=== PATIENT | female | born 1965 | race Caucasian/White ===

== ENCOUNTER 2018-12-18 17:00 | Emergency (ER) | payer BC ==
--- OUTSIDE RECORDS SUMMARY | 2018-12-18 17:05 | XMS REPORT | Continuity of Care Document ---
:1965 External Reference #:[id number] Author Name MIGUEL Mancini Address [address] [place] [address] Care Team Providers Name Role Phone Patience Bell M.D. Care Team Information Hand Driller Unavailable Patience Bell M.D. Primary Care Physician Unavailable Payers Date Identification Numbers Payment Provider Subscriber Effective: Policy Number: [id number] BC/BS Of JESSICA Kelsey 2016 PayID: [id number] [address] [address] [place] [address] Advance Directives Description No Information Available Problems Date Description Provider Status Onset: 12/23/2014 Contact dermatitis Patience Bell M.D. Active Onset: 12/23/2014 Intrinsic asthma without status Patience Bell M.D. 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 No Active 04/19/ Hx Unknown Medications 2016 - 2017 No Active 12/13/ Hx Unknown Medications 2017 - 2016 Azithromycin 12/13/ Hx Tablets 250mg 6tabs take 2 J20.9 Makayla 2017 - tablets by Narendra, 04/19/ mouth SOL[employer] IN[employer] MEMBER 2017 today then take 1 tablet daily for next 4 days No Active 10/11/ Hx Unknown Medications 2015 - 2015 Elidel 10/11/ Hx Cream 1% 30gm apply R21 Cindi 2016 - thinly to [facility], 11/23/ affected Afnp-C 2017 areas on face below eye and around mouth bid No Active 04/22/ Hx Unknown Medications 2015 - 2015 Amoxicillin/Cl 04/22/ Hx Tablets 500-125mg 20tabs 1 by mouth J01.90 Makayla avulanate 2016 - twice a Narendra, Potassium 10/10/ day x 10 [employer] IN[employer] MEMBER 2016 days Clotrimazole/B 12/19/ Hx Cream 1-0.05% 90gm apply to L30.9 Maral etamethasone 2016 - affected [facility], Dipropionate 04/22/ areas , [employer] MEMBER 2016 once a day No Active 06/30/ Hx Unknown Medications 2014 - 2015 No Active 12/23/ Hx Unknown Medications 2014 - 2014 Mometasone 12/23/ Hx Ointment 0.1% 1units 1 apply to 692.9 Patience Furoate 2015 - affected [place], 06/30/ area twice M.D. 2014 a day for up to 7 days Advair Diskus / Hx Aerosol 250-50mcg/ 1 puff Unknown 0000 - Dose twice a day 2014 Immunizations CPT Code Status Date Vaccine Lot # [id number] Given 11/28/2017 Tdap Tetanus, W Pertussis [id number] Vital Signs Date Vital Result Comment 12/15/2018 3:14pm BP Systolic 128 mmHg BP Diastolic 88 mmHg Heart Rate 60 /min Body Temperature 98.1 F Respiratory Rate 17 /min Height 60 inches 5'0" Weight 149.25 lb BMI (Body Mass Index) 29.1 kg/m2 12/31/2017 10:53am BP Systolic 118 mmHg BP Diastolic 78 mmHg Heart Rate 72 /min Body Temperature 97.1 F Respiratory Rate 16 /min Height 60 inches 5'0" 11/28/2017 10:05am BP Systolic 160 mmHg BP Diastolic 100 mmHg Heart Rate 68 /min Body Temperature 97.9 F Height 60 inches 5'0" Weight 148.38 lb BMI (Body Mass Index) 29.0 kg/m2 04/19/2017 4:32pm BP Systolic 142 mmHg BP Diastolic 72 mmHg Heart Rate 72 /min Body Temperature 98.2 F Respiratory Rate 16 /min Height 60 inches 5'0" Weight 142.25 lb BMI (Body Mass Index) 27.8 kg/m2 12/13/2016 3:08pm BP Systolic 110 mmHg BP Diastolic 70 mmHg Heart Rate 68 /min Body Temperature 98.0 F Respiratory Rate 18 /min Height 60 inches 5'0" Weight 143.00 lb BMI (Body Mass Index) 27.9 kg/m2 11/23/2016 2:51pm BP Systolic 124 mmHg BP Diastolic 80 mmHg Heart Rate 68 /min Body Temperature 98.0 F Respiratory Rate 16 /min Height 60 inches 5'0" Weight 146.00 lb BMI (Body Mass Index) 28.5 kg/m2 10/11/2016 2:49pm BP Systolic 112 mmHg BP Diastolic 84 mmHg Heart Rate 72 /min Body Temperature 97.9 F Height 60 inches 5'0" Weight 143.12 lb BMI (Body Mass Index) 27.9 kg/m2 04/22/2016 11:47am BP Systolic 118 mmHg BP Diastolic 70 mmHg Heart Rate 68 /min Body Temperature 97.9 F Respiratory Rate 18 /min Height 60 inches 5'0" Weight 140.00 lb BMI (Body Mass Index) 27.3 kg/m2 12/19/2015 11:22am BP Systolic 126 mmHg BP Diastolic 80 mmHg Heart Rate 80 /min Body Temperature 97.9 F Respiratory Rate 16 /min Height 60 inches 5'0" Weight 141.00 lb BMI (Body Mass Index) 27.5 kg/m2 06/30/2015 3:37pm BP Systolic 132 mmHg BP Diastolic 80 mmHg Heart Rate 68 /min Body Temperature 98.4 F Respiratory Rate 16 /min Height 60 inches 5'0" Weight 138.00 lb BMI (Body Mass Index) 26.9 kg/m2 12/23/2014 12:45pm BP Systolic 150 mmHg BP Diastolic 94 mmHg Heart Rate 66 /min Body Temperature 96.4 F Height 60 inches 5'0" Weight 140.00 lb BMI (Body Mass Index) 27.3 kg/m2 Right Visual Acuity Distance 20/20 -2 corrected Left Visual Acuity Distance 20/25 both 20/25 Results Test Date Facility Test Result H/L Range Note Comprehensive Metabolic 12/31/2017 Patricio Rosalva (a) Sodium 137 mEq/L 134-149 Prof Potassium 4.1 mEq/L 3.6-5.5 Chloride 99 mEq/L 94-112 Carbon Dioxide 25 mEq/L 21-32 Glucose 100 mg/dL 70-105 BUN 23 mg/dL 6-26 Creatinine 0.7 mg/dL 0.6-1.4 BUN/Creat Ratio 32.9 CALC 8.0-36.0 Calcium 10.1 mg/dL 8.6-10.2 Total Protein 8.0 g/dL 6.4-8.3 Albumin 5.0 g/dL 3.8-5.5 Globulin 3.0 g/dL 2.0-4.8 A/G Ratio 1.7 CALC 0.6-2.3 Alk. Phosphatase 70 U/L 30-110 Alt (SGPT) 19 U/L 7-35 Ast (Sgot) 27 U/L 5-34 Total Bilirubin 0.5 mg/dL 0.2-1.3 GFR Non- >60 ml/min/1.73m^ >=60 GFR >60 ml/min/1.73m^ >=60 Laboratory test 11/28/2017 [facility] Cytology Thinprep SEE RESULT 1 finding w/rfx([facility]) BELOW Comprehensive 11/28/2017 [facility]ricio Rosalva ([facility]) Sodium 136 mEq/L 134-14 Metabolic Prof 9 Potassium 4.1 mEq/L 3.6-5.5 Chloride 100 mEq/L 94-112 Carbon Dioxide 29 mEq/L 21-32 Glucose 105 mg/dL 70-105 BUN 20 mg/dL 6-26 Creatinine 0.8 mg/dL 0.6-1.4 BUN/Creat Ratio 25.0 CALC 8.0-36.0 Calcium 9.9 mg/dL 8.6-10.2 Total Protein 7.5 g/dL 6.4-8.3 Albumin 4.9 g/dL 3.8-5.5 Globulin 2.6 g/dL 2.0-4.8 A/G Ratio 1.9 CALC 0.6-2.3 Alk. Phosphatase 56 U/L 30-110 Alt (SGPT) 19 U/L 7-35 Ast (Sgot) 25 U/L 5-34 Total Bilirubin 0.3 mg/dL 0.2-1.3 GFR Non- >60 ml/min/1.73m^ >=60 GFR >60 ml/min/1.73m^ >=60 Laboratory test 11/28/2017 Patricio Blackwell ([facility]) Free T4 0.92 ng/dL 0.75- 1.54 finding Lipid Profile 11/28/2017 Patricio Blackwell (a) Cholesterol 276 mg/dL High 120-200 Triglycerides 169 mg/dL 30-200 HDL Cholesterol 73 mg/dL 30-85 LDL (Calculated) 169 CALC High 0-129 VLDL Cholesterol 34 mg/dL 0-50 HDL Risk Factor 3.8 CALC 0.0-4.4 Laboratory test finding 11/28/2017 Patricio Blackwell (a) TSH 0.68 mIU/L 0.50-6.00 Complete Blood Count 11/28/2017 Patricio Blackwell (a) WBC 4.8 x10^3/UL 3.6-9.6 RBC 3.91 x10^6/UL 3.90-5.70 HGB 12.4 g/dL 12.1-17.2 HCT 37 % 36-50 MCV 95.0 fL 82.2-97.4 MCH 31.7 pg 27.6-33.3 MCHC 33.4 g/dL 33.0-35.5 RDW 13.8 % High 11.6-13.7 PLT 319 x10^3/UL 150-400 MPV 7.2 fL Low 7.4-10.4 Gran # 3.0 x10^3/UL 1.5-7.2 Lymph# 1.6 x10^3/UL 0.7-4.9 [place]# 0.2 x10^3/UL 0.1-0.9 Gran % 60.4 % 42.2-75.2 Lymph % 35.2 % 20.5-51.1 [place]% 4.4 % 1.7-9.3 FSH, Serum 11/23/2016 [facility] FSH 96.6 mIU/mL 2, [address] [place] [address] (857)- - Laboratory test 11/23/2016 Patricio Blackwell ([facility]) LDL, Direct 153 mg/dL High 0-130 finding Lipid Profile 11/23/2016 Patricio Blackwell ([facility]) Cholesterol 301 mg/dL High 120-20 0 Triglycerides 296 mg/dL High 30-200 HDL Cholesterol 82 mg/dL 30-85 LDL (Calculated) 160 CALC High 0-129 VLDL Cholesterol 59 mg/dL High 0-50 HDL Risk Factor 3.7 CALC 0.0-4.4 Complete Blood Count 11/23/2016 Curry Flora ([facility]) WBC 5.4 x10^3/UL 3.6-9.6 RBC 4.09 x10^6/UL 3.90-5.70 HGB 13.3 g/dL 12.1-17.2 HCT 39 % 36-50 MCV 95.0 fL 82.2-97.4 MCH 32.6 pg 27.6-33.3 MCHC 34.4 g/dL 33.0-35.5 RDW 13.8 % High 11.6-13.7 PLT 330 x10^3/UL 150-400 MPV 6.0 fL Low 7.4-10.4 Gran # 3.5 x10^3/UL 1.5-7.2 Lymph# 1.7 x10^3/UL 0.7-4.9 [place]# 0.2 x10^3/UL 0.1-0.9 Gran % 61.2 % 42.2-75.2 Lymph % 33.5 % 20.5-51.1 [place]% 5.3 % 1.7-9.3 Laboratory test finding 11/23/2016 Curry Flora ([facility]) TSH 0.51 mIU/L 0.50-6.00 Free T4 0.97 ng/dL 0.75-1.54 Comprehensive Metabolic 11/23/2016 Curry Flora ([facility]) Sodium 141 mEq/L 134-149 Prof Potassium 4.0 mEq/L 3.6-5.5 Chloride 105 mEq/L 94-112 Carbon Dioxide 29 mEq/L 21-32 Glucose 98 mg/dL 70-105 BUN 24 mg/dL 6-26 Creatinine 0.7 mg/dL 0.6-1.4 BUN/Creat Ratio 34.3 CALC 8.0-36.0 Calcium 10.4 mg/dL High 8.6-10.2 4 Total Protein 8.1 g/dL 6.4-8.3 Albumin 5.0 g/dL 3.8-5.5 Globulin 3.1 g/dL 2.0-4.8 A/G Ratio 1.6 CALC 0.6-2.3 Alk. 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 Ectocervical/Endocervical Specimen Adequacy: Satisfactory of evaluation Transformation zone component identified Patient Information: HPV: High risk HPV RNA testing regardless of pap results. HPV 16/18 Genotype Reflex Actual Specimen Date: 11/28/17 LMP If Unknown: 1 yr Spec Date if unknown: 2014 ?: N Post Menopausal?: N Hysterectomy?: N Previous Abnormal Pap Smears?:N Date Time Test Result Flag (u) Normal Range 11/28/17 1111 @ HPV RNA RFLX GE Negative Negative @ @ The high-risk HPV types detected by the assay include: 16, @ 18, 31, 33, 35, 39, 45, 51, 52, 56, 58, 59, 66, and 68. Signed (signature on file) LAURIE Bassett (ASCP) 11/29 1427 This Pap test was evaluated with the assistance of the ThinPrep Test Imaging System. Due to cytologic findings at the maintenance worker house trailer microscope, comprehensive manual rescreening by a Audio Visual Equipment Rental Clerk may be required. The Pap Smear is a screening test designed to aid in the detection of premalignant and malignant conditions of the uterine cervix. It is not a diagnostic procedure and should not be used as the sole means of detecting cervical cancer. Both false- positive and false- negative reports do occur. Depending on your risk status, a Pap smear should be obtained and evaluated every 1-3 years. END OF REPORT * ML=Testing performed at Main Lab DEPARTMENT OF PATHOLOGY, [address] [place] [address] Fortunato Kirby M.D. Director [facility] # [id number] 2 1SST 3 Adult Female: Follicular phase 3.5 - 12.5 Ovulation phase 4.7 - 21.5 Luteal phase 1.7 - 7.7 Postmenopausal 25.8 - 134.8 4 RESULTS VERIFIED BY REPEAT ANALYSIS 5 [facility] DEPARTMENT OF PATHOLOGY or Ext. 8434, Fax COMBINED HPV / BOTTOM POUNDER CEMENT SHOES CYTOLOGY REPORT Patient: BALBIR KELSEY : 1965 AGE: 49 Y SEX: F Acct: [id number] Procedure Date: 12/23/2014 Date Received: 12/24/2014 Requesting Provider: PATIENCE KINCAID MD Location: [facility] Case No. [id number] Requisition #: [id number] CYTOLOGIC INTERPRETATION: SPECIMEN ADEQUACY SATISFACTORY FOR EVALUATION, ENDOCERVICAL TRANSFORMATION ZONE COMPONENT PRESENT GENERAL CATEGORIZATION NEGATIVE FOR INTRAEPITHELIAL LESIONS OR MALIGNANCY RECOMMENDATIONS See Related Reference Test Result below. Refer to the corresponding web sites for 2012 updated general recommendation guidelines of U.S. preventive service task force for cervical cancer screening, and www.asccp.org//fyqmixxqd9584. COMMENTS Thin Prep Pap tests are examined with an FDA approved location-guidance system. RELATED REFERENCE TEST RESULT: HPV: "HIGH RISK" Source: CERVICAL Result: NEGATIVE Test Method: HC2 Performing Location: METHODOLOGY: HPV high risk is performed with the FDA approved Digene HC2 method whenever the specimen is cellular enough and the quantity of sample remaining in the vial after Thin Prep PAP slide preparation equals or greater than 4 ml. In cases of smaller sample (0.5 to 3.9 ml) the HPV high risk testing will be performed with Low Volume rfx. ( RN) Digene Hybrid Capture (HC2). FDA approved and detects 13 "high risk" HPV types (16/18/31/33/35/39/45/51/52/56/58/59/68) without differentiation. (02 BN) Low Volume rfx detects fourteen "high risk" HPV types (16/18/31/33/35/39/45/51/52/56/58/59/66/68) without differentiation. SPECIMEN SUBMITTED: * * (HPVR) THIN PREP W/HPV * * ENDOCERVICAL RELEVANT HISTORY: : 2 Contraceptive: NONE Para: 2 Prev.normal: 09/2013 Comment: LMP: 7 WEEKS AGO Screened/Rescreened Electronically Signed Sign Out Date/Time: by: by: CARLY FLAVIA HERNANDEZ, 12/26/2014 15:36 CT(ASCP) Note: The Pap smear is a screening test designed to aid in the detection of premalignant and malignant conditions of the uterine cervix. It is not a diagnostic procedure and should not be used as the sole means of detecting cervical cancer. Both false-positive and false-negative reports do occur. 00 UA Pap Smear performed at [facility] Dir: Jeanne Ryan MD, [address] [facility] [address] 01 hydro plant operator [place] Dir: Sue Mittal MD, [address] [facility] [phone] 02 BN Lab [facility] [place] Dir: Ry Mortensen MD, [address] [place] [phone] For inquiries regarding HPV test results, the physician may contact Lab [facility]: [phone] . Procedures Date Code Description Status 12/09/2017 76146280 Mammogram Completed 12/08/2017 35393 Blood Pressure Monitoring Completed 12/23/2014 70360 Vision Test- screening test of visual acuity, Completed quantitative, bila Encounters Type Date Location Provider Dx Diagnosis Office Visit 12/31/2017 Main Office Omayra Troy, R43.8 Other disturbances of 11:15a GEODESY TEACHER smell and taste R20.2 Paresthesia of skin M54.12 Radiculopathy, cervical region Office Visit 12/08/2017 Westley Alicia R03.0 Elevated 9:30a Office MIGUEL Crump blood-pressure reading, w/o diagnosis of htn Office Visit 11/28/2017 Westley Alicia Z12.39 Encounter for oth 10:00a Office MIGUEL Crump screening for malignant neoplasm of breast R03.0 Elevated blood-pressure reading, w/o diagnosis of htn Z01.411 Encntr for pension examiner exam (general) (routine) w abnormal findings Z23 Encounter for immunization Office Visit 04/19/2017 4:15p Main Office Cindi M54.2 Cervicalgia Francoise, Afnp-C Office Visit 12/13/2016 3:30p Main Office Makayla Mackey, J20.9 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, 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 Office Visit 11/23/2016 2:45p [facility] Office Cindi Z00.00 Encntr for Francoise, general adult Afnp-C medical exam w/o abnormal findings 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 Atopic Acute Office Visit 12/23/2014 [facility] Patience Bell, V70.0 Examination General 1:00p Office M.D. Medical Routine AT Health Care Facility V72.31 Routine Hand Embroiderer Examination 493.10 Asthma Intrinsic Unspecified V76.12 Screening Mammogram Lia Hahn Other 692.9 Eczema NOS, Contact Dermatitis NOS Plan of Treatment 12/15/2018 - Makayla Mackey, FNPZ00.01 Encounter for general adult medical examination with abnormal findingsComments:Anticipatory guidance given - healthy lifestyle, safety, prevention Pt. counseled current recommendation for annual mammograms pt. declined having on this year. Discussed importance of healthy eating patterns and regular exercise.Follow up:Pt. counseled to f/u with office in one years time for annual physical, or sooner if needed.D48.5 Neoplasm of uncertain behavior of skinComments:Refer to Dr. Justin for evaluation and Tx.Follow up:Followup:. (Follow up)Z12.11 Encounter for screening for malignant neoplasm of colonComments:Refer to gastro for [id number] Essential (primary) hypertensionComments:Discussed current HTN medication regimen pt. states she has no issues with dizziness or cough.
[2018-12-18 17:24] VITALS: BP 160/95
--- NOTE | 2018-12-18 17:32 | UC ---
Lower Extremity/Ankle HPI - History of Current Complaint Chief Complaint: UCLowerExtremity Stated Complaint: ANKLE INJURY Time Seen by Provider: 12/18/18 17:31 Pain Intensity: 0 - Allergies/Home Medications Allergies/Adverse Reactions: Allergies Allergy/AdvReac Type Severity Reaction Status Date / Time shellfish derived Allergy Severe Hives/Diff. Verified 12/18/18 17:25 Breathing/I tching Home Medications: Home Medications Lisinopril TAB* [Prinivil TAB 10 MG*] 5 mg PO DAILY 12/18/18 [History Confirmed 12/18/18] PMH/Surg Hx/FS Hx/Imm Hx - Surgical History Surgical History: Yes Surgery Procedure, Year, and Place: c section - Social History Alcohol Use: Weekly Alcohol Amount: one drink Substance Use Type: None Smoking Status (MU): Never Smoked Tobacco Physical Exam Vital Signs: Initial Vital Signs Temp 98.4 F 12/18/18 17:20 Pulse 78 12/18/18 17:20 Resp 12 12/18/18 17:20 BP 160/95 12/18/18 17:20 Pulse Ox 98 12/18/18 17:20 Discharge - Discharge Plan Referrals: Talita Bell MD [Primary Care Provider] -
--- NOTE | 2018-12-18 17:52 | UC ---
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 Denies other injuries. No anticoagulants No paresthesia + swelling to ankle. No analgesia taken medications reviewed - History of Current Complaint Chief Complaint: UCLowerExtremity Stated Complaint: ANKLE INJURY Time Seen by Provider: 12/18/18 17:31 Hx Obtained From: Patient, Family/Tire Cord Weaver Pain Intensity: 0 - Allergies/Home Medications Allergies/Adverse Reactions: Allergies Allergy/AdvReac Type Severity Reaction Status Date / Time shellfish derived Allergy Severe Hives/Diff. Verified 12/18/18 17:25 Breathing/I tching Home Medications: Home Medications Lisinopril TAB* [Prinivil TAB 10 MG*] 5 mg PO DAILY 12/18/18 [History Confirmed 12/18/18] PMH/Surg Hx/FS Hx/Imm Hx Previously Healthy: Yes - Surgical History Surgical History: Yes Surgery Procedure, Year, and Place: c section - Family History Known Family History: Positive: Non-Contributory - Social History Occupation: Employed Full-time Lives: With Family Alcohol Use: Weekly Alcohol Amount: one drink Substance Use Type: None Smoking Status (MU): Never Smoked Tobacco Review of Systems All Other Systems Reviewed And Are Negative: Yes Constitutional: Positive: Negative Skin: Positive: Negative Motor: Positive: Other - right ankle pain Neurological: Positive: Negative Is Patient Immunocompromised?: No Physical Exam - Summary Physical Exam Summary: A+Ox3, no distress Eyes: Conjunctiva Clear, ENT: Hearing grossly normal Neck: Positive: Supple, no pain c/t/l//s Respiratory: Positive: No respiratory distress, No accessory muscle use + CTA throughout no w/r Cardiovascular: RRR nl s1, s2 no m/r CBT <2 sec 2+ DP, PT Musculoskeletal Exam: + SLE + flex/ext knee + TTP lateral malloulus right no pain medial no pain prox tib/fib no pain tarsals metatarsals Neurological: Positive: Alert, + sensation throughout + gross sensation throughout Psychological: Positive: Normal Response To Family Skin: Positive: no rash, no ecchymosism edema lateral malleolus, skin intact Triage Information Reviewed: Yes Vital Signs: Initial Vital Signs Temp 98.4 F 12/18/18 17:20 Pulse 78 12/18/18 17:20 Resp 12 12/18/18 17:20 BP 160/95 12/18/18 17:20 Pulse Ox 98 12/18/18 17:20 Procedures - Splinting Right Lower Extremity Location: Right LE applied by me Hand-Made Type: orthoglass Splint: U shaped sling Pre-Proc Neuro Vasc Exam: normal Post-Proc Neuro Vasc Exam: normal Diagnostics - Radiology No standard instances Radiology Interpretation Completed By: ED Physician - spiral distal fibula right , mortise intact, no prox injury Lower Extremity Course/Dx - Course Course Of Treatment: Pt with right ankle pain s/p slip on ice. no LOC, no other injuries. Pt with pain right lateral malloulus. xray + spiral fx - mortise intact, no injury prox. CSM intact, skin intact. NWB in splint applied by me. crutches. ice. motrin/apap. elevate. work note. f/u with ortho - attempted Dr. Winslow ortho x 2 pages over 1 hour - call back Dr. Jefferson after pt discharge - agreement with plan - will f/u in office. BP elevated - recommend f/u with PCP - pt in discomfort - Differential Dx/Diagnosis Provider Diagnosis: Displaced comminuted fracture of shaft of right fibula Discharge - Sign-Out/Discharge Documenting (check all that apply): Patient Departure All imaging exams completed and their final reports reviewed: No - Discharge Plan Condition: Stable Disposition: HOME Patient Education Materials: Ankle Fracture (ED), Crutch Instructions (ED) Forms: *Work Release Referrals: David Winslow MD [Medical Doctor] - Talita Bell MD [Primary Care Provider] - Additional Instructions: - wear splint for comfort and support until you are evaluated in follow-up by the orthopedic specialists - use crutches until and be non-weight bearing until you are seen in follow-up - elevate your leg to help with swelling and pain - Apply ice (wrapped in a towel) 20 minutes at a time, 2-3 times a day - contact Dr. Winslow (fire fighting equipment specialist) tomorrow to schedule a follow-up appointment As discussed, you xrays were not reviewed by a radiologist kathleen. They will review them tomorrow. If there is a finding different than discussed with you this evening, you will receive a call from a care senior stereo compiler team lead - Billing Disposition and Condition Condition: STABLE Disposition: Home
--- NOTE | 2018-12-19 12:02 | UC ---
- Progress Note Progress Note: Patient Name: BALBIR KELSEY Medical Record#: [id number] Ordering Physician: Maral LEE Acct.#: [id number] : 1965 Age: 53 Sex: F Location: [facility] Exam Date: 12/18/18 1721 ADM Status: DEP ER Order Information: ANKLE RIGHT 3+VWS Accession Number: [id number] CPT: 26005 INDICATION: Right ankle injury. TECHNIQUE: 3 views of the right ankle were obtained. FINDINGS: There is lateral soft tissue swelling. There is an oblique comminuted fracture of the distal diaphysis of the fibula just proximal to the metaphysis. The major distal fragment is displaced posterior approximately 1 cortical diameter. Joint spaces appear maintained. IMPRESSION: OBLIQUE COMMINUTED DISPLACED FRACTURE OF THE DISTAL DIAPHYSIS OF THE FIBULA. R0 Preliminary Imaging Read R0 <Electronically signed by David Duncan MD in OV> 12/19/18719 Dictated By: David Duncan MD Dictated Date/Time: 12/19/18719 Transcribed Date/Time: 12/19/18716 Copy to: CC:Talita Bell MD; Maral LEE; Lisa Blandon MD Imaging - [facility] - [facility] [address] [place] [address] ph ([phone]) ph ([phone]) ph ([phone]) This report is only to be considered final once signed by the Provider(s) as displayed in the "<Electronically Signed by >" field (s). Absence of a signature indicates the report is in a draft status and still needs to be finalized. In the event this document was created by someone other than the signing Provider, the individual initiating the document will be listed in the "Entered by:" or "Dictated by:" villanueva. 1 of 1 Course/Dx - Diagnoses Provider Diagnoses: Displaced comminuted fracture of shaft of right fibula Discharge - Sign-Out/Discharge Documenting (check all that apply): Post-Discharge Follow Up All imaging exams completed and their final reports reviewed: Yes - Discharge Plan Condition: Stable Disposition: HOME Patient Education Materials: Ankle Fracture (ED), Crutch Instructions (ED) Forms: *Work Release Referrals: David Winslow MD [Medical Doctor] - Talita Bell MD [Primary Care Provider] - Additional Instructions: - wear splint for comfort and support until you are evaluated in follow-up by the orthopedic specialists - use crutches until and be non-weight bearing until you are seen in follow-up - elevate your leg to help with swelling and pain - Apply ice (wrapped in a towel) 20 minutes at a time, 2-3 times a day - contact Dr. Winslow (lactation specialist) tomorrow to schedule a follow-up appointment As discussed, you xrays were not reviewed by a radiologist kathleen. They will review them tomorrow. If there is a finding different than discussed with you this evening, you will receive a call from a care long line teamster - Billing Disposition and Condition Condition: STABLE Disposition: Home
== END 2018-12-18 19:25 | disposition home or self-care (01) ==
LOC: UCEAST 17:00
DX: S82.831A Other fracture of upper and lower end of right fibula, initial encounter for closed fracture (principal); X50.1XXA Overexertion from prolonged static or awkward postures, initial encounter; Y92.412 Parkway as the place of occurrence of the external cause; Z91.013 Allergy to seafood
CPT/HCPCS: 99212; G0463

== ENCOUNTER 2018-12-22 11:19 | Day surgery (SDC) | payer BC ==
[~2018-12-22 11:19] MED LIST: Buffered Lidocaine 1% SYRIN* 1 ML/SYRINGE INTRADERM ONE; Dexamethasone TAB* 4 MG PO ONE; DiMENhydriNATE IV* 50 MG/ML VIAL IV PUSH PRN; Famotidine IV* 10 MG/ML 2 ML (20 mg) IV ONE; Lactated Ringers 1000 ML Bag* 1,000 ML IV SCH; Morphine VIAL* 4 MG/ML VIAL (1 ml vial) IV PRN; Naloxone* 0.4 MG/ML 1 ML VIAL IV PRN; Ondansetron TAB* 4 MG PO ONE; PROCHLORPERAZINE INJ 5 MG/ML 2 ML VIAL IV PRN; Scopolamine 1.5 mg* PATCH TRANSDERM PRN; fentaNYL* 50 MCG/ML 2 ML VIAL (100 MCG VIAL) IV PRN; oxyCODONE/Acetamin 5/325 MG* TAB PO PRN
[2018-12-22] MEDS ORDERED: Ondansetron ODT TAB* 4 MG ONE (11:39)
[2018-12-22] MEDS ORDERED: Famotidine IV* 10 MG/ML 2 ML (20 mg) ONE (11:39)
[2018-12-22] MEDS ORDERED: Dexamethasone TAB* 4 MG ONE (11:40)
[2018-12-22] MEDS ORDERED: Buffered Lidocaine 1% SYRIN* 1 ML/SYRINGE INTRADERM ONE (11:40)
[2018-12-22] MEDS ORDERED: ceFAZolin 2 GM PREMIX in ORs 2 GM/50 ML BAG IVPB ONE (12:11)
[2018-12-22] MEDS ORDERED: Midazolam* 1 MG/ML 10 ML VIAL (10 MG) ONE (12:18)
[2018-12-22] MEDS ORDERED: fentaNYL* 50 MCG/ML 2 ML VIAL (100 MCG VIAL) ONE (12:18)
[2018-12-22] MEDS ORDERED: ROPIVACAINE 5 MG/ML 30 ML BTL (0.5%) ONE (12:21)
[2018-12-22] MEDS ORDERED: Bupivacaine 0.5% W/EPI SDV* 30 ML VIAL ONE (13:58)
[2018-12-22] MEDS ORDERED: Propofol* 500 MG/50 ML BTL ONE (15:47)
[2018-12-22] MEDS ORDERED: Ketorolac INJ* 30 MG/ML 1 ML VIAL ONE (15:47)
[2018-12-22] MEDS ORDERED: Lidocaine 2% PF * 5 ML VIAL ONE (15:47)
[2018-12-22] MEDS ORDERED: Propofol* 10 MG/ML 20 ML BTL ONE (15:48)
[2018-12-22] MEDS ORDERED: Chloroprocaine 2%* 20 ML VIAL ONE (16:10)
[2018-12-22 17:10] VITALS: BP 140/87
--- NOTE | 2018-12-24 21:45 | OP ---
OPERATIVE REPORT: DATE OF OPERATION: 12/22/18 DATE OF : [birth year] SURGEON: David Winslow MD PILE DRIVER: JESUS Emerson A physician assistant womens volleyball coach was required for the length of the procedure for assistance with the patient po sitioning, retraction, instrumentation, and closure. ANESTHESIOLOGIST: Dr. Shlomo Rizo. ANESTHESIA: General anesthesia. PRE-OP DIAGNOSIS: Right lateral malleolus ankle fracture, displaced. POST-OP DIAGNOSIS: Right lateral malleolus ankle fracture, displaced. OPERATIVE PROCEDURE: Open reduction and internal fixation, right ankle lateral malleolus or distal f ibula. IV FLUIDS: 1900 cc crystalloids. ANTIBIOTICS: Ancef 2 g IV. TOURNIQUET TIME: 80 minutes at 300 mmHg. XVCR-HS-HBFS TIME: 73 minutes. RADIATION EXPOSURE: C-arm time unknown. SPECIMEN: None. IMPLANTS: 10-hole one-third tubular Synthes plate with nonlocking and locking screws, mostly 3.5 mm. There was also a 2.7 mm lag screw placed from anterior to posterior across one of the fracture site s. ESTIMATED BLOOD LOSS: Minimal. COMPLICATIONS: None. 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 No widening of the ankle joint in stress views. Discussed nonoperative and operative management and pros and cons, risks and complications. The patient opted for surgery. DESCRIPTION OF PROCEDURE: In preoperative holding, the patient signed a written consent. Operative extremity was marked in the preop holding. The patient was taken back to the operating room and laid supine on the operating room table, sedated and intubated. Splint was removed. Right lower extremi ty had the tourniquet placed about the thigh. Right lower extremity was prepped and draped. Surgical time-out was performed. Esmarch applied and tourniquet elevated to 300 mmHg. A classic lateral skin incision was made to the ankle. I made it more proximal than normally because the patient's fracture was notable for having very long variable fracture lines with some comminutio n. I dissected down to bone. Interestingly, the patient had a variant where the superficial peroneal nerve where a branch of it pr esented quite distally within 3 to 4 mm of the distal end of the lateral malleolus. Fortunately, I v isualized this, respected it, and retracted it anteriorly. I identified one of the fracture lines. Long, main fracture line running from proximal posterior to distal anterior. There was significant shortening, more than 5 mm clearly, perhaps a cm. I cleaned out the fracture site, irrigated it, curetted it. I had an assistant womens volleyball coach pull significant traction on the foot and internally rotate. That along with some dextrous use of bone clamp allowed me to obtain a good reduction at this fracture site. I placed a 2.7 mm fully threaded screw from anterior to posterior across the fracture site using lag technique. I kept the bone clamps in place. I brought a large C-arm in, confirmed excellent reduction on AP and lateral x-ray views. I next picked a one-third tubular plate. I had to pick a long plate to ensure getting 3 good screws on either side of the fracture. I picked a 10-hole one-third tubular plate. I placed nonlocking scr ews proximal and distal to the fracture lines. I next obtained x-ray images, AP and lateral, that sh owed excellent placement of hardware and excellent reduction of fracture site. I filled in screw holes, placing a total of 3 screws proximal and then 3 screws distal to the fractur e site. These were a combination of locking and nonlocking screws. I obtained images including an e xternal rotation stress view that showed no medial clear space gapping whatsoever. This confirmed th e lack of requirement of a syndesmotic screw. I placed a shorter 2.7 mm screw as I had noted that it had been overly prominent on my original x-ray views. I took final x-ray views which showed excellent placement of hardware and excellent reduction of frac ture. Irrigation. A closure of some deep fascia with figure-of- eight stitches using Vicryl 2-0 sut ures. Closure of subcutaneous tissue with buried simple stitches using Vicryl 3-0 suture. Closure o f skin using a running stitch using nylon 4-0 suture. Xeroform, 4x4s, sterile Webril. A plaster short-leg splint was placed with posterior slab and then sugar-tong, overwrapped with Aldo b andage. The patient was awakened, extubated and brought to the PACU. DISPOSITION: The patient will follow up with me in 10 to 14 days. Right lower extremity elevation. Non-weightbearing right lower extremity. Percocet as needed for pain control, aspirin x2 weeks for DVT prophylaxis and Keflex for 3 days for infection prophylaxis. [id number]/[facility] #: [id number]
[2018-12-25] MEDS ORDERED: Scopolamine PATCH Remove* 1 NOTE MISC PATCH OFF ONE (05:28)
== END 2018-12-22 17:12 | disposition home or self-care (01) ==
LOC: OR 11:19
PROVIDERS: ATTEND Orthopaedic Surgery
DX: S82.61XA Displaced fracture of lateral malleolus of right fibula, initial encounter for closed fracture (principal); W00.2XXA Other fall from one level to another due to ice and snow, initial encounter; Y93.89 Activity, other specified; Y92.9 Unspecified place or not applicable; I10 Essential (primary) hypertension; J45.909 Unspecified asthma, uncomplicated
CPT/HCPCS: 76000; A9270-GY; C1713; C1776; J0690; J1885; J2250; J2400; J2704; J2795; J3010; J8540